=== PATIENT | male | born 1955 | race Caucasian/White ===

== ENCOUNTER → 2024-10-31 | Outpatient (CLI) | payer MEDICARE ==
--- NOTE | 2024-11-02 16:33 | PE ---
EXAMINATION TYPE: PET CT fusion skull to thigh DATE OF EXAM: 10/31/2024 CLINICAL INDICATION:Male, 69 years old with history of R91.1 L upper lobe pulmonary nodule; TECHNIQUE: Following the intravenous administration of 9.23 mCi of F-18 FDG, whole body images are performed from the skull base to the Mid thigh. Images are reviewed on the computer in the coronal, axial, and sagittal planes. Reconstructed rotating images are created on independent workstation and reviewed on the computer. A non-contrast CT is performed in conjunction with the PET scan. Glucose level 95 mg/dL CT DLP: 742 mGycm, Automated exposure control for dose reduction was used. COMPARISON: CT None, PET/CT None, MRI: None FINDINGS: Mediastinal SUV mean is 2.70. Hepatic parenchyma SUV mean is 2.0. SKULL BASE AND NECK: No suspicious radiotracer activity. CHEST, MEDIASTINUM, AND HILAR REGION: Streaky parenchymal morphology extending to the periphery in the left upper lung posteriorly max SUV 1.9 while this is evident nodular-like appearance on axial imaging and sagittal and coronal imaging t his appears more to be architectural distortion/scarring ABDOMEN AND PELVIS: No suspicious radiotracer activity. MUSCULOSKELETAL STRUCTURES: No suspicious radiotracer activity. OTHER CT: Atherosclerosis of the arterial vasculature including the intracranial vasculature of the c arotid bifurcations and the coronary arteries. colonic diverticulosis. Prostatomegaly. IMPRESSION: 1. Left upper lung posterior possible scarring/atelectasis with FDG levels below background. Short-t erm follow-up CT in 6 months recommended to ensure stability then consideration for yearly low-dose l marquita cancer screening. 2. No suspicious uptake identified suggest active malignancy. [facility], , 11/02/2024 4:30 PM
== END | disposition home or self-care (01) ==
LOC: RADPETMAIN 08:22
PROVIDERS: ATTEND Family Medicine
DX: R91.1 Solitary pulmonary nodule (principal)
CPT/HCPCS: 78815; A9552